=== PATIENT | female | born 1975 | race Hispanic/Latino ===

== ENCOUNTER 2022-01-12 15:44 | Emergency (ER) | payer BC, OTHER ==
[~2022-01-12] VITALS: Ht 157.5 cm; Wt 113.4 kg
[2022-01-12 16:48] LABS: BASOPHILS % (AUTO) 0.7 % (0.0-5.0); EOSINOPHILS % (AUTO) 1.1 % (0.0-8.0); HEMATOCRIT 42.8 % (36-48); LYMPHOCYTES % (AUTO) 16.9 % (21.0-51.0); MEAN CORPUSCULAR HGB CONC 32.2 g/dL (32.0-36.0); MONOCYTES % (AUTO) 6.6 % (3.0-13.0); PLATELET COUNT (AUTO) 331 K/uL (130-400); RED BLOOD CELL COUNT(AUTO) 4.92 MIL/uL (4.00-5.50); RED CELL DISTRIBUTION WIDTH 13.5 % (11.0-15.5)
[2022-01-12] MEDS ORDERED: KETOROLAC 60 MG VIAL (30MG/ML) IM ONE (17:00)
[2022-01-12 17:03] LABS: CREATININE 0.6 mg/dL (0.5-1.5); POTASSIUM 3.4 mmol/L (3.5-5.1)
[2022-01-12] MEDS ORDERED: DICL50TA9 PO (17:47)
[2022-01-12 17:53] VITALS: BP 128/70
== END 2022-01-12 18:03 | disposition home or self-care (01) ==
LOC: EDH 15:44
DX: S46.011A Strain of muscle(s) and tendon(s) of the rotator cuff of right shoulder, initial encounter (principal); M25.511 Pain in right shoulder; I10 Essential (primary) hypertension; X58.XXXA Exposure to other specified factors, initial encounter; Y93.89 Activity, other specified; Y92.89 Other specified places as the place of occurrence of the external cause; Y99.8 Other external cause status
CPT/HCPCS: 36415; 73030; 80048; 81025; 84484; 85025; 93005; 96372; 99284; J1885

== ENCOUNTER → 2024-04-14 | Outpatient (CLI) | payer BC ==
[~2024-04-14] MED LIST: DICL50TA9 PO
== END | disposition home or self-care (01) ==
LOC: SHCH 13:26
PROVIDERS: ATTEND Internal Medicine Cardiovascular Disease
DX: I31.8 Other specified diseases of pericardium (principal); Q24.8 Other specified congenital malformations of heart
CPT/HCPCS: 93306

== ENCOUNTER → 2024-08-24 | Outpatient (CLI) | payer BC | END | disposition home or self-care (01) | LOC: RAH 13:11 | PROVIDERS: ATTEND Internal Medicine Cardiovascular Disease | DX: I31.8 Other specified diseases of pericardium (principal); M47.815 Spondylosis without myelopathy or radiculopathy, thoracolumbar region | CPT/HCPCS: 71250 ==